=== PATIENT | female | born 1935 | race African-American/Black ===

== ENCOUNTER 2016-09-21 10:58 | Emergency (ER) | payer OTHER ==
[2016-09-21 11:20] VITALS: RESP 18
--- NOTE | 2016-09-21 11:47 | EDPHY ---
H & P Stated Complaint: R WRIST SWOLLEN FOR 1.5 DAYS Time Seen by Provider: 09/21/16 11:19 HPI/ROS: CHIEF COMPLAINT: Wrist pain HISTORY OF PRESENT ILLNESS: This is an 81-year-old female with a history of IDDM, chronic kidney disease, hypertension, and gout involving the 3rd and 4th digits of her right hand. She presents complaining of right wrist pain and swelling that has been present for the past 2 days. She denies trauma. There is mild redness over the medial wrist and some swelling proximal to that. It is tender to any touch. She states that it feels like her gout usually does. She has not had fever. She is taking colchicine 3 times a week. REVIEW OF SYSTEMS: A ten point review of systems was performed and is negative with the exception of the items mentioned in the HPI. Source: Patient, Family - Personal History Current Tetanus/Diphtheria Vaccine: Yes Tetanus Vaccine Date: < 10 YEARS - Medical/Surgical History Hx Asthma: Yes Hx Chronic Respiratory Disease: No Hx Diabetes: Yes Hx Cardiac Disease: No Hx Renal Disease: Yes Hx Cirrhosis: No Hx Alcoholism: No Hx HIV/AIDS: No Hx Splenectomy or Spleen Trauma: No Other PMH: DIBETES, CHRONIC KIDNEY DISEASE, GERD, HTN, HYPERLIPIDEMIA, IVC FILTER, TOTAL KNEE X 2 - Social History Smoking Status: Never smoked Alcohol Use: None Drug Use: None Additional Social History: She lives in [place]. She is here visiting her daughter. - Physical Exam Exam: General Appearance: Alert. Vital signs reviewed. Blood pressure 150/88. Eyes: Pupils equal and round, no conjunctival injection, no discharge. Anicteric. Respiratory: Lungs are clear to auscultation; no wheezes, rales, or rhonchi. Cardiovascular: Regular rate and rhythm; no murmur, rub, or gallop. Gastrointestinal: Abdomen is soft and nontender. Skin: Warm and dry, no rashes on exposed skin, normal color. Back: Nontender to palpation over the thoracolumbar spine. No CVAT. Extremities: Swelling on the dorsum of the distal right forearm just proximal to the wrist. There is mild erythema over the medial aspect of the wrist. She has pain with any motion of the wrist or any touch. There is no skin warmth. Bilateral lower Taryn edema, 1+. Neurological: Alert and oriented. Moving all four extremities spontaneously. Psychiatric: Normal affect. Constitutional: Initial Vital Signs Temperature (C) 37.1 C 09/21/16 11:04 Heart Rate 88 09/21/16 11:04 Respiratory Rate 18 09/21/16 11:04 Blood Pressure 150/88 H 09/21/16 11:04 O2 Sat (%) 92 09/21/16 11:04 O2 Delivery Mode Room Air Allergies/Adverse Reactions: cinnamon Allergy (Verified 09/21/16 11:12) Home Medications: Medication Instructions Recorded ACETAZOLAMIDE 09/21/16 Atorvastatin Calcium 09/21/16 Chlorthalidone 09/21/16 Colchicine 09/21/16 Escitalopram Oxalate 09/21/16 Furosemide 09/21/16 Iron Pill 09/21/16 Lantus 100 UNITS/ML (*) 09/21/16 Montelukast Sodium 09/21/16 Omeprazole 09/21/16 Senna-S Tablet 09/21/16 Spironolactone 09/21/16 VITAMIN D 09/21/16 Warfarin Sodium 09/21/16 novoLOG 09/21/16 Medical Decision Making - Diagnostics Imaging Results: Imaging Impressions Wrist X-Ray 09/21/16 11:43 Impression: 1. No fracture 2. 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 3. Scapholunate ligament laxity/tear. ED Course/Re-evaluation: She is visiting from [place]. Her INR was last checked in June and she is not due to return until mid October. Will check basic labs--CBC, chemistries, and INR today. Will obtain wrist x-ray. Presentation is consistent with gout, which she has experienced in her right hand previously. She is noted have a BUN of 103 with a creatinine of 2.4. I was able to speak with her daughter in [place] who is a nurse. I am told that she has stage 3 kidney disease. Her creatinine is usually in the 2s. I do think that she is likely somewhat dehydrated. She is on diuretics. She is not used to being at this altitude. She is encouraged to drink more liquids. Her white blood cell count is slightly elevated at 10.2. INR is 2.3, therapeutic. I reviewed her x-ray. No evidence of fracture or dislocation. This does not appear to be a cellulitis. There is no abscess. I think that her presentation is most consistent with gout, which she has experienced in the past. She is taking colchicine but tries to decrease her dose when she is not having a problem with active gout. I am recommending that she increase her dose now, but only for a limited time.. In conversation with her daughter in [place] this is what she has done in the past with good results. I do not think that anti-inflammatory medications are appropriate for her with her chronic kidney disease. She has a prescription for Johnson and will use this medication for pain if needed. I am recommending follow up within the week. Her daughter hopes that she will be able to see Dr. Dsouza. - Data Points Laboratory Results: Laboratory Results 09/21/16 12:40 09/21/16 12:40 09/21/16 09/21/16 09/21/16 12:40 12:40 12:40 WBC 10.22 10^3/uL H 10^3/uL (3.80-9.50) RBC 6.57 10^6/uL H 10^6/uL (4.18-5.33) Hgb 14.1 g/dL g/dL (12.6-16.3) Hct 47.2 % H % (38.0-47.0) MCV 71.8 fL L fL (81.5-99.8) MCH 21.5 pg L pg (27.9-34.1) MCHC 29.9 g/dL L g/dL (32.4-36.7) RDW 18.7 % H % (11.5-15.2) Plt Count 175 10^3/uL 10^3/uL (150-400) MPV TNP Neut % (Auto) 71.1 % % (39.3-74.2) Lymph % (Auto) 19.2 % % (15.0-45.0) Sutter % (Auto) 7.6 % % (4.5-13.0) Eos % (Auto) 1.1 % % (0.6-7.6) Baso % (Auto) 0.4 % % (0.3-1.7) Nucleat RBC Rel Count 0.0 % % (0.0-0.2) Absolute Neuts (auto) 7.27 10^3/uL H 10^3/uL (1.70-6.50) Absolute Lymphs (auto) 1.96 10^3/uL 10^3/uL (1.00-3.00) Absolute Monos (auto) 0.78 10^3/uL 10^3/uL (0.30-0.80) Absolute Eos (auto) 0.11 10^3/uL 10^3/uL (0.03-0.40) Absolute Basos (auto) 0.04 10^3/uL 10^3/uL (0.02-0.10) Absolute Nucleated RBC 0.00 10^3/uL 10^3/uL (0-0.01) Immature Gran % 0.6 % % (0.0-1.1) Immature Gran # 0.06 10^3/uL 10^3/uL (0.00-0.10) PT 25.5 SEC H SEC (12.0-15.0) INR 2.34 H (0.83-1.16) Sodium 138 mEq/L mEq/L (134-144) Potassium 3.9 mEq/L mEq/L (3.5-5.2) Chloride 101 mEq/L mEq/L (97-110) Carbon Dioxide 17 mEq/l L mEq/l (22-31) Anion Gap 20 mEq/L H mEq/L (8-16) BUN 103 mg/dL H* mg/dL (7-23) Creatinine 2.4 mg/dL H mg/dL (0.6-1.0) Estimated GFR 19 Glucose 243 mg/dL H mg/dL (70-100) Calcium 8.6 mg/dL mg/dL (8.5-10.4) Departure - Departure Disposition: Home, Routine, Self-Care Clinical Impression: Gout attack Qualifiers: Gout site: wrist Gout etiology: other secondary cause Laterality: right Qualified Code(s): M10.431 - Other secondary gout, right wrist Condition: Good Instructions: Gout (ED) Additional Instructions: Increase your Colchicine to once daily, instead of on Friday, Fri, and Friday. Take your hydrocodone/acetominophen if needed for pain. Follow the instructions on your prescription. I am giving you a copy of your laboratory work so that you can take it to your doctor in [place]. I recommend that you follow up with the primary care doctor this coming week, just check up and make sure everything is going okay. Hopefully you can see Dr. Dsouza or one of her colleagues. Referrals: Shay BHANDARI MD [Other] - As per Instructions Kieran Dsouza MD [Medical Doctor] - As per Instructions
[2016-09-21 12:49] LABS: % IMMATURE GRANULYOCYTES 0.6 % (0.0-1.1); ABSOLUTE IMMATURE GRANULOCYTES 0.06 10^3/uL (0.00-0.10); ADD DIFF? NO; ADD MORPH? NO; ADD SCAN? NO; ATYPICAL LYMPHOCYTE FLAG 0 (0-99); FRAGMENT RBC FLAG 40 (0-99); HEMATOCRIT 47.2 % (38.0-47.0); HEMOGLOBIN 14.1 g/dL (12.6-16.3); LEFT SHIFT FLG 0 (0-99); LIPEMIA HEMOLYSIS FLAG 70 (0-99); MEAN CELL HEMOGLOBIN 21.5 pg (27.9-34.1); MEAN CELL HEMOGLOBIN CONCENTR. 29.9 g/dL (32.4-36.7); MEAN CELL VOLUME 71.8 fL (81.5-99.8); PLATELET CLUMPS FLAG 10 (0-99); PLATELET COUNT 175 10^3/uL (150-400); RED BLOOD CELL COUNT 6.57 10^6/uL (4.18-5.33); RED CELL DISTRIBUTION WIDTH 18.7 % (11.5-15.2)
[2016-09-21 13:05] LABS: INR 2.34 (0.83-1.16); PROTIME(PATIENT) 25.5 SEC (12.0-15.0)
[2016-09-21 13:06] LABS: CALCIUM 8.6 mg/dL (8.5-10.4); CREATININE 2.4 mg/dL (0.6-1.0); POTASSIUM 3.9 mEq/L (3.5-5.2)
[2016-09-21 14:35] VITALS: BP 153/85; PULSE 75; TEMP 98.1; O2SAT 93
== END 2016-09-21 14:33 | disposition home or self-care (01) ==
LOC: CED 10:58
DX: M10.9 Gout, unspecified (principal); J45.909 Unspecified asthma, uncomplicated; I12.9 Hypertensive chronic kidney disease with stage 1 through stage 4 chronic kidney disease, or unspecified chronic kidney disease; N18.9 Chronic kidney disease, unspecified; E11.9 Type 2 diabetes mellitus without complications; Z79.01 Long term (current) use of anticoagulants; Z79.4 Long term (current) use of insulin
CPT/HCPCS: 73110-PO; 80048-PO; 85025-PO; 85610-PO